=== PATIENT | male | born 1990 | race Two or more races ===

== ENCOUNTER 2025-01-13 17:03 | Emergency (ER) | payer SELFPAY ==
[~2025-01-13] VITALS: Ht 175.3 cm; Wt 63.7 kg
--- NOTE | 2025-01-13 17:19 | ED.PDOC ---
HPI Comments 34y M who presents to the ED via EMS for chief complaint of chest pain. EMS states pt is homeless and EMS called after pt starting acting erratic by shopping complex. EMS arrived on scene and states pt had noted wound to the L leg and he kept telling EMS that he has a "blood infection." EMS states pt had stable vitals upon arrival and while pt being transferred to EMS [facility], pt states he felt lightheaded with noted chest pain and pt was brought to the ED. Pt in the ED, otherwise denies any other symptoms. EMS notes pt has elevated blood pressure of 188/66 but otherwise all other vitals in normal range. Pt otherwise denies any other symptoms at this time. Time Seen by MD: 17:12 Reviewed Notes: Thread Grinder Tool Notes Allergies: Coded Allergies: NO KNOWN ALLERGIES (Unverified , 01/13/25) Information Source: Patient, Emergency Med Personnel Mode of Arrival: EMS Brought in by: EMS Severity: Moderate Timing: Hours Duration: Since onset Prehospital treatment: None Location: Chest (R) Radiation: No Radiation Onset: At Rest Cardiac Risk Factors: None Modifying Factors: Nothing Associated Signs and Symptoms: None Past Medical History PAST MEDICAL HISTORY: Denies Surgical History: Denies all surgeries Family History Family History: Unknown Social History Smoker: Unknown Alcohol: Denies ETOH Use Drugs: Unknown Lives In: Homeless Constitutional: denies: chills, diaphoresis, fatigue, fever, malaise, sweats, weakness, others EENTM: denies: blurred vision, double vision, ear bleeding, ear discharge, ear drainage, ear pain, ear ringing, eye pain, eye redness, hearing loss, mouth pain, mouth swelling, nasal discharge, nose bleeding, nose congestion, nose pain, photophobia, tearing, throat pain, throat swelling, voice changes, others Respiratory: denies: cough, hemoptysis, orthopnea, SOB at rest, shortness of breath, SOB with excertion, stridor, wheezing, others Cardiovascular: reports: chest pain; denies: dizzy spells, diaphoresis, Dyspnea on exertion, edema, irregular heart beat, left arm pain, lightheadedness, palpitations, PND, syncope, others Gastrointestinal: denies: abdomen distended, abdominal pain, blood streaked bowels, constipated, diarrhea, dysphagia, difficulty swallowing, hematemesis, melena, nausea, poor appetite, poor fluid intake, rectal bleeding, rectal pain, vomiting, others Genitourinary: denies: burning, dysuria, flank pain, frequency, hematuria, incontinence, penile discharge, penile sore, pain, testicle pain, testicle swelling, urgency, others Neurological: denies: dizziness, fainting, headache, left sided numbness, left sided weakness, numbness, paresthesia, pre-existing deficit, right sided numbness, right sided weakness, seizure, speech problems, tingling, tremors, weakness, others Musculoskeletal: denies: back pain, gout, joint pain, joint swelling, muscle pain, muscle stiffness, neck pain, others Integumetry: denies: bruises, change in color, change in hair/nails, dryness, laceration, lesions, lumps, rash, wounds, others Allergic/Immunocompromised: denies: Difficulty Healing, Frequent Infections, Hives, Itching, others Hematologic/Lymphatic: denies: anemia, blood clots, easy bleeding, easy bruising, swollen glands, others Endocrine: denies: excessive hunger, excessive sweating, excessive thirst, excessive urination, flushing, intolerance to cold, intolerance to heat, unexplained weight gain, unexplained weight loss, others Psychiatric: denies: anxiety, bipolar disorder, depression, hopeless, panic disorder, schizophrenia, sleepless, suicidal, others All Other Systems: Reviewed and Negative Physical Exam General Appearance: No Apparent Distress, Other (The patient was somewhat sleeping) HEENT: Normal ENT Inspection, Pharynx Normal, TMs Normal Neck: Full Range of Motion, Non-Tender, Normal, Normal Inspection Respiratory: Chest Non-Tender, Lungs Clear, No Accessory Muscle Use, No Respiratory Distress, Normal Breath Sounds Cardiovascular: No Edema, No JVD, No Murmur, No Gallop, Normal Peripheral Pulses, Regular Rate/Rhythm Breast Exam: Deferred Gastrointestinal: No Organomegaly, Non Tender, No Pulsatile Mass, Normal Bowel Sounds, Soft Genitalia: Deferred Pelvic: Deferred Rectal: Deferred Extremities: No calf tenderness, Normal capillary refill, Normal inspection, Normal range of motion, Non-tender, No pedal edema Musculoskeletal : Apperance: Normal 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 Was a procedure done?: No CP Differential Dx Differential Diagnosis: A-fib, A-Flutter, Angina, Anxiety / Panic Attack, Electrolyte Disorder Other Differential Diagnosis drug use, X-Ray, Labs, Meds, VS Vital Signs Date Time Temp Pulse Resp B/P (MAP) Pulse Ox O2 Delivery O2 Flow Rate FiO2 01/13/25 17:37 97.9 97 18 141/90 (107) 98 97.9 01/13/25 17:37 97 18 Room Air 01/13/25 17:23 89 14 96 Room Air* 0 21 01/13/25 17:20 94 01/13/25 17:11 98.9 18 18 182/106 (131) 99 98.9 01/13/25 17:04 94 Lab Test 01/13/25 18:54 01/13/25 17:19 Range/Units Urine Color Light-yellow Yellow Urine Clarity Clear Clear Urine pH 7.0 5.0-9.0 Urine Specific [place] 1.016 1.001-1.035 Urine Protein Negative Negative Urine Ketones Negative Negative Urine Blood Negative Negative /uL Urine Nitrite Negative Negative Urine Bilirubin Negative Negative Urine Urobilinogen Normal Negative mg/dL Urine Leukocyte Esterase Negative Negative /uL Urine RBC 1 0 - 3 /hpf Urine Microscopic WBC 0-3 /HPF Urine Squamous Epithelial Cells None seen <5 /hpf Urine Bacteria None seen None Seen /hpf Urine Glucose Normal Normal mg/dL Urine Opiates Screen Neg NEGATIVE Urine Fentanyl Screen Neg NEGATIVE Urine Barbiturates Screen Neg NEGATIVE Urine Phencyclidine Screen Neg NEGATIVE Urine Amphetamines Screen Pos NEGATIVE Urine Benzodiazepines Screen Neg NEGATIVE Urine Cocaine Screen Neg NEGATIVE Urine Cannabinoids Screen Pos NEGATIVE White Blood Count 4.8 4.4-10.8 10^3/uL Red Blood Count 4.67 4.5-5.90 10^6/uL Hemoglobin 14.9 13.5-17.5 g/dL Hematocrit 42.2 41.0-53.0 % Mean Corpuscular Volume 90.3 80.0-100.0 fL Mean Corpuscular Hemoglobin 32.0 28.0-32.0 pg Mean Corpuscular Hemoglobin Concent 35.4 32.0-36.0 g/dL Red Cell Distribution Width 12.6 11.8-14.3 % Platelet Count 220 140-450 10^3/uL Mean Platelet Volume 8.7 6.9-10.8 fL Neutrophils (%) (Auto) 65.9 37.0-80.0 % Lymphocytes (%) (Auto) 25.6 10.0-50.0 % Monocytes (%) (Auto) 6.7 0.0-12.0 % Eosinophils (%) (Auto) 1.2 0.0-7.0 % Basophils (%) (Auto) 0.6 0.0-2.0 % Neutrophils # (Auto) 3.2 1.6-8.6 10 ^3/uL Lymphocytes # (Auto) 1.2 0.4-5.4 10 ^3/uL Monocytes # (Auto) 0.3 0-1.3 10 ^3/uL Eosinophils # (Auto) 0.1 0-0.8 10 ^3/uL Basophils # (Auto) 0 0-0.2 10 ^3/uL Nucleated Red Blood Cells 0.4 % Sodium Level 138 136-145 mmol/L Potassium Level 3.1 L 3.5-5.1 mmol/L Chloride Level 102 98-107 mmol/L Carbon Dioxide Level 28 20-31 mmol/L Anion Gap 8 5-15 Blood Urea Nitrogen 10 9-23 mg/dL Creatinine 0.87 0.700-1.30 mg/dL Glomerular Filtration Rate Calc 117 >90 mL/min BUN/Creatinine Ratio 11.5 10.0-20.0 Serum Glucose 116 H 74-106 mg/dL Calcium Level 9.7 8.7-10.4 mg/dL Plasma/Serum Blood Alcohol < 3.0 <10 mg/dL The CBC and chemistry panel are within normal limits except for hypokalemia at 3.1 The urine tox is positive for methamphetamines and marijuana The urine test is negative for infection The patient is being discharged with a diagnosis of substance abuse The patient will return to the emergency department's condition worsens Time of 1ST Reevaluation: 17:55 Reevaluation 1ST: Unchanged Patient Education/Counseling: Diagnosis, Treatment, Prognosis, Need For Follow Up Family Education/Counseling: No Family Present Departure 1 Departure Time of Disposition: 19:58 Impression: Primary Impression: Substance abuse Disposition: 01 HOME / SELF CARE / HOMELESS Condition: Fair Discharged With: Self Critical Care Note Critical Care Time?: No Stability Stability form required: No Heart Score Heart Score: Heart Score Response (Comments) Value History Slightly Suspicious 0 EKG Normal 0 Age <45 0 Risk Factors No known risk factors 0 Troponin N/A 0 Total 0 I personally scribed for LIBRA WILSON MD ([email or web address]) on 01/13/25 at 17:19. Electronically submitted by Jorge Neri ([email or web address]). I personally scribed for LIBRA WILSON MD ([email or web address]) on 01/13/25 at 17:20. Electronically submitted by Jorge Neri ([email or web address]). LIBRA WILSON MD Jan 13, 2025 17:19
[2025-01-13 17:23] VITALS: PULSE 89; RESP 14; O2SAT 96
[2025-01-13 18:44] LABS: Basophils # (auto) 0 10 ^3/uL (0-0.2); Basophils % (auto) 0.6 % (0.0-2.0); Eosinophils # (auto) 0.1 10 ^3/uL (0-0.8); Eosinophils % (auto) 1.2 % (0.0-7.0); Hematocrit 42.2 % (41.0-53.0); Hemoglobin 14.9 g/dL (13.5-17.5); Lymphocytes # (auto) 1.2 10 ^3/uL (0.4-5.4); Lymphocytes % (auto) 25.6 % (10.0-50.0); Mean Corpuscular Hgb Conc. 35.4 g/dL (32.0-36.0); Mean Corpuscular Volume 90.3 fL (80.0-100.0); Monocytes # (auto) 0.3 10 ^3/uL (0-1.3); Monocytes % (auto) 6.7 % (0.0-12.0); Neutrophils # (auto) 3.2 10 ^3/uL (1.6-8.6); Neutrophils % (auto) 65.9 % (37.0-80.0); Nucleated Red Blood Cells % 0.4 %; Platelet Count (auto) 220 10^3/uL (140-450); Red Blood Cells 4.67 10^6/uL (4.5-5.90); Red Cell Distribution Width 12.6 % (11.8-14.3); White Blood Cell 4.8 10^3/uL (4.4-10.8)
[2025-01-13 18:53] LABS: Chloride 102 mmol/L (98-107); Sodium 138 mmol/L (136-145)
[2025-01-13 18:54] LABS: Urine Bacteria None Seen /hpf (None Seen)
[2025-01-13 18:54] LABS: Anion Gap 8 (5-15); Calcium 9.7 mg/dL (8.7-10.4); Carbon Dioxide 28 mmol/L (20-31)
[2025-01-13 18:56] LABS: Potassium 3.1 mmol/L (3.5-5.1)
[2025-01-13 18:59] LABS: BUN/Creatinine Ratio 11.5 (10.0-20.0); Blood Urea Nitrogen 10 mg/dL (9-23)
[2025-01-13 19:00] LABS: Blood Alcohol < 3.0 mg/dL (<10); Glucose 116 mg/dL (74-106)
[2025-01-13 19:03] LABS: Urine Blood Negative /uL (Negative); Urine Clarity Clear (Clear); Urine Color Light-Yellow (Yellow); Urine Protein, UAD Negative (Negative); Urine Specific Gravity 1.016 (1.001-1.035); Urine Squamous Epithelial Cell None Seen /hpf (<5); Urine Urobilinogen Normal (Negative)
[2025-01-13 19:20] LABS: Cannabinoid Screen, Urine Pos (NEGATIVE); Phencyclidine Screen, Urine Neg (NEGATIVE)
[2025-01-13 19:21] LABS: Amphetamine Screen, Urine Pos (NEGATIVE); Barbiturate Scree,Urine Neg (NEGATIVE); Benzodiazephine Screen, Urine Neg (NEGATIVE); Cocaine Screen, Urine Neg (NEGATIVE); Opiate Scree,Urine Neg (NEGATIVE)
[2025-01-13] MEDS ORDERED: BACDST PO (20:41)
[2025-01-13 20:44] VITALS: BP 141/69; PULSE 98; RESP 19; TEMP 98.9; O2SAT 97
--- NOTE | 2025-01-14 14:01 | ECG ---
[facility] Test Date: 2025-01-13 Test Time: 17:04:30 Pat Name: SOTERO DRUMMOND Department: ED Room: Gender: M Educational Advisor: gp : 1990 Requested By: LIBRA WILSON Order Number: [id number] Reading MD: Measurements Intervals [place] Rate: 94 P: 75 HI: 160 QRS: 41 QRSD: 85 T: 19 QT: 373 QTc: 467 Interpretive Statements Sinus rhythm Nonspecific T abnormalities, anterior leads Please click the below link to view image of tracing.
== END 2025-01-13 20:52 | disposition home or self-care (01) ==
LOC: EDBD 17:03 → ER 17:07
DX: F19.10 Other psychoactive substance abuse, uncomplicated (principal); F17.200 Nicotine dependence, unspecified, uncomplicated; Z59.00 Homelessness unspecified; Z79.899 Other long term (current) drug therapy
CPT/HCPCS: 36415; 80048; 80307; 80320; 81001; 85025